=== PATIENT | female | born 1960 | race Caucasian/White ===

== ENCOUNTER → 2019-11-30 12:38 | Outpatient (CLI) | payer OTHER, SELFPAY ==
--- NOTE | 2019-11-30 12:38 | FLU_PTH ---
PATIENT: FARIDA CHANCE [id number] AGE/SX: 65/F ROOM: RE11/30/[address]: Dr. Jimy Toure MD : 1960 BED: DIS: SPEC #: [id number] RECD: 11/30/19 15:05 STATUS: [place] OK #: [id number] ABBY: 11/30/19 12:[address]: Jimy Toure DEPT: CYTOLOGY RECD BY: Phillip Hagen ENTERED: 12/01/19 07:48 SP TYPE: Fluid OTHR DR: Dr. Chris Vega, DO Tissues: Thyroid gland, NOS Procedures: Special Stain Group II Surgery Specimen Level IV Cytospin Fluid HEADER OPERATION: FNA left thyroid nodule PRE-OP DIAGNOSIS: Nontoxic thyroid goiter; history of renal cell carcinoma TISSUE SUBMITTED: FNA left thyroid nodule DIAGNOSIS CYTOLOGY Fine needle aspiration, left thyroid (cytospin and cell block): Adequate for evaluation. Negative, consistent with benign follicular nodule with cystic change. AM:gianfranco 12/04/19 CYTOLOGY STUDY Slides are reviewed. CYTOLOGY GROSS Received is 40 ml of red hazy fluid labeled with the patient's name and and designated per the requisition as left thyroid nodule. Submitted for cytology preparation including cell block. / gianfranco 11/30/19 TC:5 CPT: 46190, 32307
== END ==
PROVIDERS: PCP Family Medicine; Visit Provider Otolaryngology
DX: E04.9 Nontoxic goiter, unspecified (principal)
CPT/HCPCS: 88108; 88305; 88313

== ENCOUNTER → 2020-06-26 10:56 | Outpatient (CLI) | payer OTHER, SELFPAY ==
[2020-06-26 10:00] VITALS: BMI 44.2
--- NOTE | 2020-06-26 11:30 | RAD_ITS ---
STUDY: X-RAY CHEST REASON FOR EXAM: Female, 60 years old. HX CAD. PER PATIENT, GETTING AN ECHO DONE NEXT WEEK. TECHNIQUE: PA and lateral views of the chest. COMPARISON: 12/14/2013 FINDINGS: Normal variant azygous fissure. The lungs are clear and expanded. There is no demonstrated pleural abnormality. Normal size heart. Normal mediastinum and heather. Normal visualized pulmonary arteries. Normal visualized aortic arch and descending thoracic aorta. Normal visualized thoracic spine. Normal visualized ribs, clavicles, and shoulders. There is no demonstrated abnormality of the visualized soft tissue structures of the upper abdomen. RAD/Chest PA and Lateral IMPRESSION: Normal x-ray examination of the chest. Electronically Signed: Shankar Nayak MD ([place]) at 13:00 EST , Service support ,
== END ==
PROVIDERS: Referring Provider Internal Medicine Cardiovascular Disease; Visit Provider Internal Medicine Cardiovascular Disease
DX: R94.39 Abnormal result of other cardiovascular function study (principal); R03.0 Elevated blood-pressure reading, without diagnosis of hypertension
CPT/HCPCS: 71046; 93788

== ENCOUNTER 2020-07-03 06:29 | Day surgery (SDC) | payer OTHER, SELFPAY ==
[2020-06-26 10:00] VITALS: BMI 44.2
[2020-06-26 12:07] LABS: Absolute Lymphocyte Count 2.09 X10^3/uL (0.83-4.51); Absolute Neutrophil Count 4.5 X10^3/uL (2.0-7.7); Basophil# 0.05 X10^3/uL; Basophil% 0.7 % (0-1); Eosinophil# 0.14 X10^3/uL; Hemoglobin 13.2 g/dL (12.0-15.0); Lymphocyte # 2.09 X10^3/ul (4.0); Lymphocyte % 29.4 % (19-41); Mean Corpuscular Hgb 26.4 pg (27.0-32.0); Mean Platelet Vol. 11.3 fl (6.2-12.0); Monocyte# 0.33 X10^3/uL; Monocyte% 4.6 % (0-10); NRBC Flagged by Analyzer 0 % (0-5); Neutrophil # 4.48 X10^3/uL (2.7-7.7); Neutrophil % 62.9 % (47-70); Platelet Count 294 K/mm3 (150-450); RBC Distribution Width CV 13.6 % (11.6-14.6); White Blood Count 7.1 K/mm3 (4.4-11.0)
[2020-06-26 12:25] LABS: Anion Gap 5 (5-15); BUN 12 mg/dL (7-18); Chloride 111 mmol/L (98-107); EST Glomerular Filtration Rate 61 mL/min (>60); Est Glom Filt Rate - Afr Amer 73 mL/min (>60); Glucose 104 mg/dL (74-106); Potassium 4.3 mmol/L (3.5-5.1); Sodium Level 139 mmol/L (136-145)
[2020-07-02 07:43] VITALS: BMI 44.2
--- NOTE | 2020-07-03 07:53 | CL.D_ITS ---
Patient Name: FARIDA CHANCE CATH Study Date: 07/03/2020 Performing: Louie Salazar MD Ht: 66.14 inches 168 cm : 1960 Wt: 273.37 lbs 124 kg Age: 60 Gender: female BSA: 2.29 PROCEDURE(S) PERFORMED [id number] CLINICAL PROFILE AND INDICATIONS Indications: Suspected CAD Heart Failure: None Stress/Imaging Stress Echocardiogram: Yes Result: Positive Intermediate RiskStress Echocardiogram : Positive Intermediate Risk CAD Presentations: Symptom unlikely to be ischemic. CONCLUSIONS Normal coronary arteries RECOMMENDATIONS Medical therapy DESCRIPTION OF PROCEDURE The patient arrived to the procedure lab. The risks and benefits of the procedure as well as a full d escription of our services here and current unavailability of surgical backup were fully explained to the patient and/or their significant other prior to the catheterization. The Timeout was completed, verifying the correct patient and procedure. The patient's procedural site was prepped and draped in the usual fashion. Local anesthetic was given subcutaneously to right radial region with Lidocaine 2% . Using a modified Seldinger technique, arterial access was obtained via the right radial artery, a 6 Fr sheath was inserted. Left Coronary Artery selective angiography was performed in multiple views u sing a 5 Fr. 4.0 [place] catheter. Right Coronary Artery selective angiography was then performed in mu ltiple views using a 5 Fr. 4.0 [place] catheter.The arterial sheath was pulled and a TR Band was applie d for hemostasis CORONARY ANGIOGRAPHY DOMINANCE: Right Dominant LEFT HEART ASSESSMENT Left Ventricular Ejection Fraction: by Echo 65 % Normal LV wall motion LEFT MAIN: Angiographically normal LEFT ANTERIOR DESCENDING ARTERY: Angiographically normal CIRCUMFLEX ARTERY: Angiographically normal RIGHT CORONARY ARTERY: Angiographically normal COMPLICATIONS No Complications PROCEDURE MEDICATIONS Versed 1 mg IV Fentanyl 50 mcg IV Versed 1 mg IV Oxygen: 2 L/min via nasal cannula Heparin given IA 07/03/2020 07:38:12 Verapamil 2.5mg, Ntg 100mcgs, 2000 units of Heparin given IA 07/03/2020 07:38:12 SUMMARY OF HEMODYNAMIC DATA Time AIR REST ECG 06:54:37 AO 133/73 (101) SA 07:46:21 Signed By Louie Salazar MD On 07/03/2020 07:53:21 Louie Salazar MD
== END 2020-07-03 09:40 | disposition home or self-care (01) ==
LOC: CLSP 06:31
PROVIDERS: Referring Provider Internal Medicine Cardiovascular Disease; Visit Provider Internal Medicine Cardiovascular Disease
DX: R94.39 Abnormal result of other cardiovascular function study (principal); Z90.5 Acquired absence of kidney; I12.9 Hypertensive chronic kidney disease with stage 1 through stage 4 chronic kidney disease, or unspecified chronic kidney disease; N18.9 Chronic kidney disease, unspecified; E66.9 Obesity, unspecified; E78.5 Hyperlipidemia, unspecified; Z79.899 Other long term (current) drug therapy; E04.9 Nontoxic goiter, unspecified; Z79.82 Long term (current) use of aspirin
CPT/HCPCS: 36415; 80048; 85025; 93454; 99152; 99153; J7040; Q9967; C1769; C1894

== ENCOUNTER 2020-09-12 16:52 | Outpatient (RCR) | payer OTHER, SELFPAY ==
[2020-07-02 07:43] VITALS: BMI 44.2
[2020-09-12] MEDS: COVID-19 VACC, MRNA(PFIZER)/PF 30 MCG/0.3 ML SYRINGE IM (14:04)
[2020-10-03] MEDS: COVID-19 VACC, MRNA(PFIZER)/PF 30 MCG/0.3 ML SYRINGE IM (13:54)
== END 2020-09-12 23:59 ==
LOC: IMMUN 16:52
PROVIDERS: Visit Provider Family Medicine
DX: Z23 Encounter for immunization (principal)
CPT/HCPCS: 0001A; 0002A; 91300